=== PATIENT | male | born 1940 | race Caucasian/White ===

== ENCOUNTER → 2016-10-21 | Outpatient (CLI) | payer OTHER ==
[~2016-10-21] MED LIST: ASPIRIN EC81 M1 PO; ATENOLOL50 MG PO; CITRUCEL500 MG PO; CLARITIN10 M2 PO; DEPO-TESTOS200 MG/ML INJ; LORTAB 5-325 M1 EACH PO; PAMINE PO; SYNTHROID75 MCG PO; ZANTAC150 M1 PO; ZOCOR20 MG PO
--- NOTE | ~2016-10-21 | US37 ---
[facility] A Service of [facility] & [facility] RADIOLOGY TEXT RESULTS PATIENT: LEXUS NEWSOME LOCATION: CNIV : 38 UNIT #: [id number] AGE: [address]: SUKH MONTERROSO SEX: M ORDER DR: [id number] [facility] [address] [place], [place] [address] [id number] MR#: [id number] Acc #: [id number] NAME: LEXUS NEWSOME. : 1940 SEX: M STUDY DATE/TIME: 10/21/2016 15:06 UNIT: CNIV ROOM: STUDY DESCRIPTION: US Carotid W/Doppler Bilateral Attending Physician: Sukh Monterroso Referring Physician: Sukh Espinoza, Valentina Ordering Physician: Sukh Espinoza Od Primary Care Physician: Ady Jauregui M.D. MEDICAL IMAGING REPORT This report is preliminary unless electronic signature is present EXAM Carotid Doppler bilateral 10/21/2016 HISTORY Intermittent loss of vision in left eye for 1 month. Hypertension and elevated cholesterol levels and diabetes. Evaluate for carotid stenosis. FINDINGS Siddiqi-scale carotid artery images were obtained as well as Doppler waveform spectral analysis and color flow Doppler imaging. The examination was interpreted according to NASCET criteria. There is no hemodynamically significant stenosis in either carotid artery. Peak systolic velocity in the right and left internal carotid arteries was 64 cm/sec and 74 cm/sec respectively. Antegrade blood flow is seen both vertebral arteries. There is mild plaque bilaterally. IMPRESSION No hemodynamically significant stenosis in either carotid artery. Dictated by... Marquis Terrazas M.D. THIS IS AN ELECTRONICALLY VERIFIED REPORT Marquis Terrazas M.D. at 10/22/2016 2:21 PM ASHLEY/anita TD: 10/22/2016 04:45 JOB #: [id number] MEDICAL IMAGING REPORT Page 1 of 1 COPY
== END | disposition home or self-care (01) ==
LOC: CNIV 14:36
DX: E11.3293 Type 2 diabetes mellitus with mild nonproliferative diabetic retinopathy without macular edema, bilateral (principal); H53.132 Sudden visual loss, left eye; H26.493 Other secondary cataract, bilateral; H43.822 Vitreomacular adhesion, left eye; Z79.84 Long term (current) use of oral hypoglycemic drugs
CPT/HCPCS: 93880